=== PATIENT | female | born 1955 | race Caucasian/White ===

== ENCOUNTER 2017-06-02 09:12 | Day surgery (SDC) | payer MEDICARE, BC ==
[~2017-06-02] VITALS: Ht 167.6 cm; Wt 83.9 kg
[2017-06-02] VITALS (12 sets, daily range): BP systolic 106–142; BP diastolic 60–80
[~2017-06-02 09:12] MED LIST: ALBU8HFA IH; BUPR150T8 PO; BUPR300T53 PO; BUSP5TAB3 PO; DICL100G15 TP; DULO-31 PO; ELET20TA PO; ESOM20CA PO; GABA600T PO; HYDR-569 PO; HYDR12.55 PO; LIDO700A5 TP; MULTIVITAMIN PO; OMEP20TA23 PO; OXYB5TAB11 PO; VAL5T PO; [UNRECOGNIZED DRUG - OTHER] PO; [UNRECOGNIZED DRUG - OTHER] TOP
[2017-06-02] MEDS ORDERED: normal saline 1000ml 1,000 ML IV SCH (09:35)
[2017-06-02] MEDS ORDERED: diphenhydrAMINE 25mg capsule PO PRN (09:35)
[2017-06-02] MEDS ORDERED: LORazepam 0.5 MG tablet PO PRN (09:35)
[2017-06-02] MEDS ORDERED: nitroGLYCERIN 0.4mg SUBLingual tab SL PRN ×2 (09:35→14:30)
[2017-06-02] MEDS ORDERED: LIDOcaine 1% (10mg/ml) 2ml vial ONE (10:11)
[2017-06-02 10:59] LABS: BASOPHILS # (AUTO) 0.1 X10'3 (0-0.2); EOSINOPHILS # (AUTO) 0.3 X10'3 (0-0.9); HEMATOCRIT 34.9 % (35.0-45.0); HEMOGLOBIN 12.1 g/dl (12.0-16.0); LYMPHOCYTES # (AUTO) 2.4 X10'3 (1.1-4.8); LYMPHOCYTES % (AUTO) 27.9 % (21-51); MEAN CORPUSCULAR HEMOGLOBIN 32.2 PG (27.0-31.0); MEAN CORPUSCULAR HGB CONC 34.5 % (33.0-36.5); MEAN CORPUSCULAR VOLUME 93.2 FL (78-98); MEAN PLATELET VOLUME 8.8 FL (7.4-10.4); MONOCYTES # (AUTO) 0.4 X10'3 (0-0.9); MONOCYTES % (AUTO) 4.6 % (2-12); NEUTROPHILS # (AUTO) 5.3 X10'3 (1.8-7.7); NEUTROPHILS % (AUTO) 63.5 % (42-75); PLATELET COUNT 199 X10'3 (140-440); RED BLOOD COUNT 3.75 X10'6 (4.20-5.60); RED CELL DISTRIBUTION WIDTH 13.3 % (11.5-14.5); WHITE BLOOD COUNT 8.5 X10'3 (4.5-11.0)
[2017-06-02 11:04] LABS: ALBUMIN 3.8 G/DL (3.4-5.0); ANION GAP 8 (8-16); BLOOD UREA NITROGEN 14 MG/DL (7-18); BUN/CREATININE RATIO 20.6 (6.6-38.0); CALCIUM 9.4 MG/DL (8.5-10.1); CHLORIDE 105 MMOL/L (99-107); CREATININE 0.68 MG/DL (0.40-0.90); GLUCOSE 81 MG/DL (70-104); SODIUM 146 MMOL/L (135-145); TOTAL CARBON DIOXIDE 32.6 MMOL/L (24-32); eGFR 87 ML/MIN
[2017-06-02 11:05] LABS: PARTIAL THROMBOPLASTIN TIME 26 SECONDS (22-32); PROTHROMBIN TIME 10.4 SECONDS (9.0-12.0)
[2017-06-02] MEDS ORDERED: UMEC1DIS IN (11:40)
[2017-06-02] MEDS ORDERED: ESCI20TA PO (11:40)
[2017-06-02] MEDS ORDERED: DRON2.5C PO (11:40)
[2017-06-02] MEDS ORDERED: BACL50AM (11:40)
[2017-06-02] MEDS ORDERED: OXYB5TAB11 PO (11:40)
[2017-06-02] MEDS ORDERED: BUSP15TA3 PO (11:40)
[2017-06-02] MEDS ORDERED: iohexol 350MG/ML 100ml bottle IV ONE (12:33)
[2017-06-02] MEDS ORDERED: iohexol 350 MG/ML 50ML vial IV ONE (12:33)
[2017-06-02] MEDS ORDERED: LIDOcaine 1%/PF (10mg/ml) 5ml vial ONE ×2 (12:33→12:37)
[2017-06-02] MEDS ORDERED: midazolam 2 mg/2 ml injection ONE (12:33)
[2017-06-02] MEDS ORDERED: fentaNYL/PF 50MCG/1 ML 2ML syringe ONE (12:33)
[2017-06-02] MEDS ORDERED: ondansetron/PF 4mg/2ml inj IV PRN (14:30)
[2017-06-02] MEDS ORDERED: OXAZEpam 15mg capsule PO PRN (14:30)
[2017-06-02] MEDS ORDERED: HYDROcodone/acetaminophen 10/325mg tab PO PRN (14:30)
[2017-06-02] MEDS ORDERED: HYDROcodone/acetaminophen 5mg/325mg tablet PO PRN (14:30)
[2017-06-02] MEDS ORDERED: proCHLORperazine 10 MG/2 ml inj IV PRN (14:30)
[2017-06-02] MEDS ORDERED: acetaminophen 325mg tablet PO PRN (14:30)
== END 2017-06-02 20:10 | disposition home or self-care (01) ==
LOC: SSTAY O 09:12
PROVIDERS: ATTEND Internal Medicine Cardiovascular Disease
DX: I25.10 Atherosclerotic heart disease of native coronary artery without angina pectoris (principal); G89.4 Chronic pain syndrome; E11.9 Type 2 diabetes mellitus without complications; F32.9 Major depressive disorder, single episode, unspecified; E78.5 Hyperlipidemia, unspecified; G80.8 Other cerebral palsy; I10 Essential (primary) hypertension; Z87.891 Personal history of nicotine dependence; Z85.3 Personal history of malignant neoplasm of breast; Z79.1 Long term (current) use of non-steroidal anti-inflammatories (NSAID); Z88.0 Allergy status to penicillin; Z88.2 Allergy status to sulfonamides; Z88.1 Allergy status to other antibiotic agents; Z91.012 Allergy to eggs; Z91.018 Allergy to other foods; Z96.643 Presence of artificial hip joint, bilateral; Z96.611 Presence of right artificial shoulder joint; Z79.01 Long term (current) use of anticoagulants; Z79.4 Long term (current) use of insulin; Z90.11 Acquired absence of right breast and nipple; Z98.890 Other specified postprocedural states; Z79.899 Other long term (current) drug therapy
CPT/HCPCS: 36415; 71046; 80048; 85025; 85610; 85730; 93458; 99152; 99153; A4315; A6257; C1760; C1769; J1644; J2001; J2250; J3010; J3490; J7030; Q0163; Q9967; A4620

== ENCOUNTER 2019-11-13 08:51 | Outpatient (CLI) | payer MEDICARE, BC ==
[~2019-11-13 08:51] MED LIST changes: +BACL50AM; +BUSP15TA3 PO; -BUSP5TAB3 PO; +DRON2.5C PO; -DULO-31 PO; +ESCI20TA PO; +HYDR-4383 PO; -HYDR-569 PO; -OXYB5TAB11 PO; +OXYB5TAB16 PO; +UMEC1DIS IN; -[UNRECOGNIZED DRUG - OTHER] TOP
== END 2019-11-13 23:59 | disposition home or self-care (01) ==
LOC: RAD 08:51
DX: G80.0 Spastic quadriplegic cerebral palsy (principal)
CPT/HCPCS: 95819

== ENCOUNTER → 2023-04-15 | Outpatient (CLI) | payer MEDICARE, BC ==
[~2023-04-15] MED LIST changes: +DIAZ5TAB22 PO; -OXYB5TAB16 PO; +OXYB5TAB21 PO; -VAL5T PO
== END | disposition home or self-care (01) ==
LOC: RAD 10:13
PROVIDERS: ATTEND Student in an Organized Health Care Education/Training Program
DX: M19.032 Primary osteoarthritis, left wrist (principal); M79.9 Soft tissue disorder, unspecified; M85.88 Other specified disorders of bone density and structure, other site
CPT/HCPCS: 73200